=== PATIENT | male | born 1960 | race Caucasian/White ===

== ENCOUNTER 2019-06-21 11:27 | Inpatient (IN) ==
[2019-06-21] MEDS ORDERED: DILTIAZEM 50 MG/10 ML VIAL IV STA (12:45)
[2019-06-21] MEDS ORDERED: MAGNESIUM SULF RIDER 2 GM in PREMIX 1 EACH IV STA (12:45)
[2019-06-21 13:07] LABS: Basophils # 0.1 10*3/uL (0.0-0.2); Basophils % 0.7 % (0.0-0.8); Eosinophils % 0.6 % (0.00-10.9); Hematocrit 38.6 VOL% (42.0-52.0); Hemoglobin 12.9 GM/DL (14.0-18.0); Immature Granulocytes % 0.7 %; Immature Granulocytes Absolute 0.05 #; Lymphocytes # 0.7 10*3/uL (1.4-4.0); Lymphocytes % 10.1 % (21.2-54.2); Mean Corpuscular HGB Conc 33.4 GM/DL (32-36); Mean Corpuscular Volume 103.5 FL (87-102); Mean Platelet Volume 10.6 FL (9.6-12.0); Monocytes % 11.8 % (1.7-12.7); Neutrophils % 76.1 % (38.7-73.9); Platelet Count 125 T/CUMM (130-400); Red Blood Count 3.73 MC/CUMM (3.8-5.5); Red Cell Distribution Width 13.9 % (9.3-17.3); White Blood Count 6.9 T/CUMM (4-12)
[2019-06-21] MEDS: dilTIAZem Drip 125 MG/125 ML PREMIX IV SCH (13:10)
[2019-06-21 13:14] LABS: INR 1.2; PT Patient Result 12.7 SECS (9.6-12.2); Partial Thromboplastin Time 25.7 SECS (20.8-36.0)
[2019-06-21 13:31] LABS: Albumin 3.4 G/DL (3.4-5.0); Bilirubin,Total 2.2 MG/DL (0.2-1.0); Calcium 8.2 MG/DL (8.5-10.1); Osmolality,Calculated 273.8 MOS/KG (273-304); Thyroid Stimulating Hormone 1.84 uIU/ml (0.358-3.74); Total Protein 6.8 G/DL (6.4-8.3)
[2019-06-21] MEDS ORDERED: ACETAMINOPHEN 325 MG TABLET PO PRN (13:36)
[2019-06-21] MEDS ORDERED: ONDANSETRON 4 MG/2 ML VIAL IV PRN (13:36)
[2019-06-21] MEDS ORDERED: MAGNESIUM SULF RIDER 4 GM in PREMIX 1 EACH IV PRN (13:38)
[2019-06-21] MEDS ORDERED: MAGNESIUM SULF RIDER 2 GM in PREMIX 1 EACH IV PRN (13:38)
[2019-06-21 22:14] LABS: Apearance,Urine CLEAR (Clear); Bilirubin,Urine Negative (Negative); Blood, Urine Negative (Negative); Glucose,Urine (UA) Negative (Negative); Hyaline Casts,Urine 57 /LPF (0-3); Ketones,Urine 20 mg/dL (Negative); Mucus,Urine Occasional /LPF (Occasional); Nitrite,Urine Negative (Negative); Protein,Urine 30 MG/DL; RBC,Urine <1 /HPF (0-4); Urine Color Amber (Yellow); Urine Specific Gravity 1.018 (1.001-1.035); WBC,Urine 2 /HPF (0-6)
[2019-06-21 22:39] LABS: Barbiturates Screen,Urine Negative (Negative); Benzodiazepines Screen,Urine Negative (Negative); Cannabinoid Screen,Urine Negative (Negative); Opiate Screen,Urine Positive (Negative); Phencyclidine Screen,Urine Negative (Negative)
[2019-06-22] MEDS: dilTIAZem Drip 125 MG/125 ML PREMIX IV SCH (00:31)
[2019-06-22 07:02] LABS: Basophils # 0.1 10*3/uL (0.0-0.2); Basophils % 0.8 % (0.0-0.8); Eosinophils # 0.1 10*3/uL (0.0-0.87); Eosinophils % 1.4 % (0.00-10.9); Hematocrit 34.3 VOL% (42.0-52.0); Hemoglobin 11.2 GM/DL (14.0-18.0); Immature Granulocytes % 0.3 %; Immature Granulocytes Absolute 0.02 #; Lymphocytes # 0.8 10*3/uL (1.4-4.0); Lymphocytes % 12.7 % (21.2-54.2); Mean Corpuscular HGB Conc 32.7 GM/DL (32-36); Mean Corpuscular Volume 103.9 FL (87-102); Mean Platelet Volume 10.8 FL (9.6-12.0); Monocytes % 11.7 % (1.7-12.7); Neutrophils % 73.1 % (38.7-73.9); Platelet Count 122 T/CUMM (130-400); Red Cell Distribution Width 14.1 % (9.3-17.3); White Blood Count 5.9 T/CUMM (4-12)
[2019-06-22 07:33] LABS: Albumin 2.9 G/DL (3.4-5.0); Bilirubin,Total 2.6 MG/DL (0.2-1.0); Calcium 7.9 MG/DL (8.5-10.1); Osmolality,Calculated 274.7 MOS/KG (273-304); Total Protein 6.4 G/DL (6.4-8.3); VLDL CHOLESTEROL 13.2 MG/DL
[2019-06-22 07:34] LABS: Risk Ratio 2.58
[2019-06-22] MEDS ORDERED: POTASSIUM CHLORIDE 20 MEQ TABLET PO PRN (08:10)
[2019-06-22] MEDS: POTASSIUM CHLORIDE 20 MEQ TABLET PO PRN ×4 (09:01→15:27)
[2019-06-22] MEDS: PANTOPRAZOLE 40 MG TABLET PO SCH (09:01)
[2019-06-22] MEDS ORDERED: FUROSEMIDE 20 MG TABLET PO PRN (10:20)
[2019-06-22] MEDS: MAGNESIUM CHLORIDE 64 MG TABLET PO SCH ×2 (10:40→22:15)
[2019-06-22] MEDS ORDERED: FUROSEMIDE 40 MG/4 ML VIAL IV ONE ×2 (11:15→18:00)
[2019-06-22] MEDS ORDERED: DILTIAZEM CD 120 MG CAPSULE PO SCH (11:30)
[2019-06-22] MEDS: BISOPROLOL 5 MG TABLET PO SCH ×2 (15:27→22:16)
[2019-06-22] MEDS ORDERED: BISOPROLOL 5 MG TABLET PO SCH (16:00)
[2019-06-22] MEDS: APIXABAN 5 MG TABLET PO SCH (22:16)
[2019-06-23 05:53] LABS: Basophils # 0.1 10*3/uL (0.0-0.2); Basophils % 0.9 % (0.0-0.8); Eosinophils # 0.1 10*3/uL (0.0-0.87); Eosinophils % 1.2 % (0.00-10.9); Hemoglobin 11.5 GM/DL (14.0-18.0); Immature Granulocytes % 0.7 %; Immature Granulocytes Absolute 0.04 #; Lymphocytes # 0.8 10*3/uL (1.4-4.0); Lymphocytes % 14.1 % (21.2-54.2); Mean Corpuscular HGB Conc 31.9 GM/DL (32-36); Mean Corpuscular Volume 105.6 FL (87-102); Mean Platelet Volume 10.5 FL (9.6-12.0); Monocytes % 13.2 % (1.7-12.7); Neutrophils % 69.9 % (38.7-73.9); Platelet Count 133 T/CUMM (130-400); Red Blood Count 3.41 MC/CUMM (3.8-5.5); Red Cell Distribution Width 14.2 % (9.3-17.3); White Blood Count 5.7 T/CUMM (4-12)
[2019-06-23 06:16] LABS: Calcium 8.2 MG/DL (8.5-10.1); Osmolality,Calculated 276.8 MOS/KG (273-304)
[2019-06-23 06:21] LABS: Bilirubin,Total 1.9 MG/DL (0.2-1.0); Calcium 8.1 MG/DL (8.5-10.1); Osmolality,Calculated 278.7 MOS/KG (273-304); Total Protein 6.2 G/DL (6.4-8.3)
[2019-06-23] MEDS ORDERED: ASPIRIN EC 81 MG TABLET PO SCH (09:00)
[2019-06-23] MEDS ORDERED: APIXABAN 5 MG TABLET PO SCH (09:00)
[2019-06-23] MEDS: MAGNESIUM CHLORIDE 64 MG TABLET PO SCH (09:04)
[2019-06-23] MEDS: BISOPROLOL 5 MG TABLET PO SCH (09:04)
[2019-06-23] MEDS: PANTOPRAZOLE 40 MG TABLET PO SCH (09:05)
[2019-06-23] MEDS: APIXABAN 5 MG TABLET PO SCH (09:05)
[2019-06-23 11:54] VITALS: BP 101/68
[2019-06-23] MEDS ORDERED: FUROSEMIDE 20 MG TABLET PO SCH (12:00)
== END 2019-06-23 14:07 | disposition home or self-care (01) | DRG 308 ==
LOC: N.ED 11:27 → N.EDINP 13:35 → N.TELEN 17:30
PROVIDERS: ADMIT Internal Medicine; ATTEND Internal Medicine